=== PATIENT | female | born 1950 | race Hispanic/Latino ===

== ENCOUNTER 2018-06-28 10:25 | Outpatient (CLI) | payer MEDICARE ==
--- NOTE | 2018-06-28 11:39 | RAD ---
THREE VIEWS LEFT SHOULDER: Indication: Fibromyalgia with left shoulder pain. FINDINGS: No acute fracture or subluxation is evident. There is mild left AC joint osteoarthrosis. Visualized l eft lung is clear. IMPRESSION: No acute osseous abnormality. POS: [facility]
== END 2018-06-28 10:26 | disposition home or self-care (01) ==
LOC: BICMAMMO 10:25
PROVIDERS: ATTEND Family Medicine
DX: Z12.31 Encounter for screening mammogram for malignant neoplasm of breast (principal); M79.7 Fibromyalgia
CPT/HCPCS: 77063; 77067

== ENCOUNTER 2018-11-09 09:53 | Outpatient (CLI) | payer MEDICARE ==
--- NOTE | 2018-11-09 11:55 | ULT ---
LIMITED LEFT BREAST ULTRASOUND: Date: 11/09/18 PROVIDED CLINICAL HISTORY: Retroareolar left breast pain. FINDINGS: Limited sonographic interrogation was performed of the left breast in the retroareolar region and reg ion of patient's pain. The sonographic appearance of the interrogated breast parenchyma appears rikki l. IMPRESSION: BIRADS Category 1 - Negative. Negative imaging findings should not preclude further evaluation of a c linically suspicious finding. Patient is referred back to her clinician. POS: [facility]
== END 2018-11-09 09:54 | disposition home or self-care (01) ==
LOC: BICMAMMO 09:53
PROVIDERS: ATTEND Family Medicine
DX: N63.0 Unspecified lump in unspecified breast (principal); N64.4 Mastodynia
CPT/HCPCS: 76642; 77065; G0279

== ENCOUNTER 2018-11-22 10:18 | Outpatient (CLI) | payer MEDICARE ==
--- NOTE | 2018-11-22 10:44 | RAD ---
TWO VIEW CHEST: Indications: Cough, chest pain. Comparison: 09-24-03 FINDINGS: Lungs appear clear. No infiltrate. Heart size upper normal and stable. Vascular and interstitial natalia ings are prominent but stable. Osseous structures show degenerative spine change. IMPRESSION: No acute process or significant interval change noted. POS: [facility]
== END 2018-11-22 10:19 | disposition home or self-care (01) ==
LOC: BICRAD 10:18
PROVIDERS: ATTEND Family Medicine
DX: R07.1 Chest pain on breathing (principal); R50.9 Fever, unspecified; R05 Cough
CPT/HCPCS: 71046

== ENCOUNTER 2019-06-11 12:48 | Outpatient (CLI) | payer MEDICARE ==
--- NOTE | 2019-06-11 13:03 | RAD ---
XR Knee Lt 2 View HISTORY: Knee pain COMPARISON: None. FINDINGS: There are severe arthritic changes of the knee with marked medial compartment narrowing and prominent spur formation the patellofemoral joint space and an ossified body in the suprapatellar portion of the joint space. No joint effusion or fracture. IMPRESSION: Severe osteoarthritic changes of the knee.
--- NOTE | 2019-06-11 13:04 | RAD ---
XR Knee Rt 2 View HISTORY: Right knee pain COMPARISON: None. FINDINGS: There are severe osteoarthritic changes of the knee are there is marked medial compartment narrowing also prominent patellofemoral spur formation. Small joint effusion is seen. Minimal changes of the lateral compartment are present. IMPRESSION: Marked arthritic changes of the right knee.
== END 2019-06-11 12:49 | disposition home or self-care (01) ==
LOC: BICRAD 12:48
PROVIDERS: ATTEND Internal Medicine Rheumatology
DX: M17.0 Bilateral primary osteoarthritis of knee (principal)

== ENCOUNTER 2019-06-13 13:29 | Outpatient (CLI) | payer MEDICARE ==
--- NOTE | 2019-06-13 14:43 | BD ---
DEXA BONE DENSITY EXAM: HISTORY: A 68-year-old postmenopausal female for screening. FINDINGS: LUMBAR SPINE BMD (g/cm2) T-SCORE L1 0.659 -3.0 L2 0.795 -2.1 L3 0.879 -1.9 L4 0.935 -1.1 TOTAL L1-L4 0.826 -2.0 LEFT FEMORAL NECK 0.578 -2.4 TOTAL PROXIMAL LEFT FEMUR 0.876 -0.5 RIGHT FEMORAL NECK 0.563 -2.6 TOTAL PROXIMAL RIGHT FEMUR 0.806 -1.1 IMPRESSION: Osteoporosis. This patient has 10 year WHO fracture risk for a major osteoporotic fracture of 13% an d for a hip fracture of 2.9%. POS: [facility]
== END 2019-06-13 13:30 | disposition home or self-care (01) ==
LOC: BICMAMMO 13:29
PROVIDERS: ATTEND Internal Medicine Rheumatology
DX: M81.0 Age-related osteoporosis without current pathological fracture (principal)
CPT/HCPCS: 77080

== ENCOUNTER 2019-07-22 18:13 | Emergency (ER) | payer MEDICARE ==
[2019-07-22 20:35] LABS: #Lymphocytes 0.5 thou/uL (1.20-3.40); #Monocytes 0.2 thou/uL (0.11-0.59); #Neutrophils 1.8 thou/uL (1.40-6.50); %Basophils 0.6 % (0.0-1.0); %Eosinophils 0.3 % (0.0-10.0); %Lymphocytes 20.9 % (21.0-51.0); %Monocytes 7.1 % (0.0-10.0); Hemoglobin 14.2 g/dL (12.0-16.0); Mean Corpuscular HGB CONC 33.8 g/dL (32.0-36.0); Mean Corpuscular Hemoglobin 29.3 pg (27.0-31.0); Mean Corpuscular Volume 86.5 fL (78.0-98.0); Mean Platelet Volume 8.3 fL (7.4-10.4); Platelet Count 127 thou/uL (130-400); RBC Distribution Width 12.3 % (11.5-14.5); Red Blood Cell (RBC) Count 4.85 mill/uL (4.20-5.40); White Blood Cell (WBC) Count 2.5 thou/uL (4.8-10.8)
[2019-07-22 20:56] LABS: ALT (SGPT) 25 U/L (8-55); AST (SGOT) 32 U/L (5-34); Albumin 3.7 g/dL (3.4-4.8); Alkaline Phosphatase 77 U/L (40-110); Anion Gap 12 mmol/L (10-20); BUN (Urea Nitrogen) 13 mg/dL (9.8-20.1); Bilirubin, Total 0.2 mg/dL (0.2-1.2); Calc. Creatinine Clearance 0 mL/min (70-130); Calcium 8.6 mg/dL (7.8-10.44); Carbon Dioxide 22 mmol/L (23-31); Chloride 109 mmol/L (98-107); Estimated GFR-MDRD Greater than 90; Glucose 90 mg/dL (80-115); Potassium 3.2 mmol/L (3.5-5.1); Protein, Total 6.7 g/dL (6.0-8.3); Sodium 140 mmol/L (136-145)
[2019-07-22] MEDS ORDERED: Acetaminophen 500 MG TAB ONE (21:05)
[2019-07-22] MEDS ORDERED: Ondansetron PF 4 MG/2 ML Vial ONE (21:05)
[2019-07-22] MEDS ORDERED: Potassium Chloride 20 MEQ TAB ONE (21:05)
[2019-07-22 22:02] LABS: Bacteria/HPF None Seen HPF (None Seen); Bilirubin Negative (Negative); Blood, Urine Negative (Negative); Clarity Clear (Clear); Glucose, Urine (Dipstick) Normal (Negative); Leukocyte Negative Leu/uL (Negative); Nitrite Negative (Negative); Protein, Urine (Dipstick) 30 mg/dL (Neg-Trace); RBC/HPF 0-3 HPF (0-3); Squamous Epithelial 0-3 HPF (0-3); Urobilinogen Normal mg/dL (Less than 2)
--- NOTE | 2019-07-22 22:18 | CT ---
CT HEAD WITHOUT IV CONTRAST COMPARISON: 01/13/2015 HISTORY: Weakness and severe headache. Neck stiffness and nausea and vomiting. TECHNIQUE: Axial CT imaging at 5 mm intervals from vertex through skull base without contrast FINDINGS: There is no evidence of an acute infarction, hemorrhage, mass effect, or midline shift. The ventricul ar system is normal in size, shape, and position. Visualized paranasal sinuses are clear. Osseous structures appear intact.There is what appears to be either an osseous exostosis versus a lizeth cification in the midline anterior frontal region stable from the prior exam. IMPRESSION: 1. No acute intracranial abnormality demonstrated.
[2019-07-22] MEDS ORDERED: Ketorolac Tromethamine 30 MG/ML VIAL ONE (22:48)
== END 2019-07-22 23:00 | disposition home or self-care (01) ==
LOC: ERS 18:13
DX: E87.6 Hypokalemia (principal); R51 Headache; M19.90 Unspecified osteoarthritis, unspecified site; Z79.899 Other long term (current) drug therapy
CPT/HCPCS: 36415; 70450; 80053; 81003; 81015; 85025; 93005; 96361; 96374; 96375; J1885; J2405

== ENCOUNTER 2019-11-23 12:04 | Outpatient (CLI) | payer MEDICARE ==
--- NOTE | 2019-11-23 13:35 | MMO ---
Bilateral MAMMO Bilat Screen [facility]. CLINICAL HISTORY: Patient is 69 years old and is seen for screening. The patient has no family history of breast cancer. The patient has no personal history of cancer. VIEWS: The views performed were: bilateral craniocaudal with tomosynthesis and bilateral mediolateral oblique with tomosynthesis. FILMS COMPARED: The present examination has been compared to prior imaging studies performed at [facility] on 01/20/2015, 04/20/2016, 06/28/2018 and 11/09/2018. This study has been interpreted with the assistance of computer-aided detection. MAMMOGRAM FINDINGS: There are scattered fibroglandular densities. Benign calcifications are noted bilaterally. There are no suspicious masses, suspicious calcifications, or new areas of architectural distortion. IMPRESSION: THERE IS NO MAMMOGRAPHIC EVIDENCE OF MALIGNANCY. A ROUTINE FOLLOW-UP MAMMOGRAM IN 1 YEAR IS RECOMMENDED. THE RESULTS OF THIS EXAM WERE SENT TO THE PATIENT. ACR BI-RADS Category 2 - Benign finding MAMMOGRAPHY NOTE: 1. A negative mammogram report should not delay a biopsy if a dominant of clinically suspicious mass is present. 2. Approximately 10% to 15% of breast cancers are not detected by mammography. 3. Adenosis and dense breasts may obscure an underlying neoplasm. Reported by: IRAIDA EUGENE MD Electonically Signed: [id number]
== END 2019-11-23 12:05 | disposition home or self-care (01) ==
LOC: BICMAMMO 12:04
PROVIDERS: ATTEND Family Medicine
DX: Z12.31 Encounter for screening mammogram for malignant neoplasm of breast (principal)
CPT/HCPCS: 77063; 77067

== ENCOUNTER 2020-07-11 11:44 | Outpatient (CLI) | payer MEDICARE ==
--- NOTE | 2020-07-11 12:23 | RAD ---
XR Lumbar Spine 2 Or 3 View History: Low back pain Comparison: None. Findings: Mild dextro scoliosis lumbar spine. Bridging left L2/L3 and L3/L4 osteophytes. High-grade r ight L5/S1 facet joint sclerosis and narrowing. Asymmetric right reverse left SI joint degenerative disease. No acute fracture. Multiple round deep pelvic phleboliths. Moderate degenerative disease of an inferi or erosions of the pubic symphysis. Impression: 1. Mild lumbar dextro scoliosis with associated left-sided bridging osteophytes an associated SI join t degeneration. No acute fracture. 2. 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 3. Mild erosive change inferior left pubic symphysis consistent with chronic pubic symphysitis.
--- NOTE | 2020-07-11 12:25 | RAD ---
XR Sacrum and Coccyx STANDARD History: Low back pain Comparison: None. Findings: No acute displaced fracture or malalignment. Dystrophic calcifications project over the ant erior pelvis likely within a diverticulum. Asymmetric right worse than left SI joint degenerative change. No sacral fracture. Impression: Chronic findings. No acute abnormality.
== END 2020-07-11 11:45 | disposition home or self-care (01) ==
LOC: BICRAD 11:44
PROVIDERS: ATTEND Family Medicine
DX: M54.5 Low back pain (principal); M47.818 Spondylosis without myelopathy or radiculopathy, sacral and sacrococcygeal region; M41.9 Scoliosis, unspecified; M25.78 Osteophyte, vertebrae
CPT/HCPCS: 72100; 72220

== ENCOUNTER 2020-08-04 10:38 | Outpatient (CLI) | payer MEDICARE ==
--- NOTE | 2020-08-04 13:18 | MRI ---
Exam: Left shoulder MRI without IV contrast: HISTORY: Strain of muscle/tendon of left rotator cuff, left shoulder pain FINDINGS: Multiplanar, multisequence MRI examination of the left shoulder is performed. There appears to be a c omplete full-thickness supraspinatus tendon tear with retraction between the humeral dome and the acromium. There is also an extensive tear with partial retraction of the infraspinatus tendon. Abnorm al signal associated with the subscapularis tendon with evidence for at least a partial-thickness undersurface tear and associated thinning. No evidence for normal intact biceps tendon. Moderate to s evere muscle volume loss and fatty change of the supraspinatus, infraspinatus, and subscapularis muscles indicating chronicity. There is abnormal marrow signal involving the acromium with some irregularity certainly worrisome for the possibility of an acromial fracture. There is some surrounding posttraumatic fluid. In addition there is some fluid extension into the overlying posterior lateral deltoid muscle which may well be related to muscle strain. There is in addition a small punctate focus of metal susceptibility artifact in this region of abnormal intramuscular signal. IMPRESSION: Abnormal marrow signal involving the acromium with an appearance most suggestive of that of a fractur e. Follow-up plain x-ray examination of the left shoulder and scapula is recommended. Evidence for intramuscular increased signal in the deltoid muscle evidence for strain. Small punctate focus of susceptibility artifact within this region of strain I'm not sure if that is related to the strain or is just an incidental finding. Extensive rotator cuff tears as above. Severe muscle volume loss of the supraspinatus, infraspinatus, and subscapularis muscles with evidenc e for a torn biceps tendon.
== END 2020-08-04 10:39 | disposition home or self-care (01) ==
LOC: BICMRI 10:38
PROVIDERS: ATTEND Internal Medicine Rheumatology
DX: S46.012A Strain of muscle(s) and tendon(s) of the rotator cuff of left shoulder, initial encounter (principal); R93.7 Abnormal findings on diagnostic imaging of other parts of musculoskeletal system; M62.89 Other specified disorders of muscle; M75.122 Complete rotator cuff tear or rupture of left shoulder, not specified as traumatic

== ENCOUNTER 2020-12-30 14:36 | Outpatient (CLI) | payer BC | END 2020-12-30 14:37 | disposition home or self-care (01) | LOC: BICMAMMO 14:36 | PROVIDERS: ATTEND Internal Medicine Rheumatology | DX: Z12.31 Encounter for screening mammogram for malignant neoplasm of breast (principal); M81.0 Age-related osteoporosis without current pathological fracture | CPT/HCPCS: 77063; 77067; 77080 ==

== ENCOUNTER 2022-12-07 07:36 | Outpatient (CLI) | payer MEDICARE | END 2022-12-07 07:37 | disposition home or self-care (01) | LOC: BICRAD 07:36 | PROVIDERS: ATTEND Family Medicine | DX: R07.81 Pleurodynia (principal); S22.31XA Fracture of one rib, right side, initial encounter for closed fracture; I51.7 Cardiomegaly | CPT/HCPCS: 71046; 71110 ==

== ENCOUNTER 2023-01-12 08:52 | Outpatient (CLI) | payer MEDICARE | END 2023-01-12 08:53 | disposition home or self-care (01) | LOC: BICMAMMO 08:52 | PROVIDERS: ATTEND Internal Medicine Rheumatology | DX: M81.0 Age-related osteoporosis without current pathological fracture (principal); M85.852 Other specified disorders of bone density and structure, left thigh; M85.851 Other specified disorders of bone density and structure, right thigh | CPT/HCPCS: 77080 ==

== ENCOUNTER 2023-08-16 08:02 | Outpatient (CLI) | payer BC, MEDICARE | END 2023-08-16 08:03 | disposition home or self-care (01) | LOC: BICMAMMO 08:02 | PROVIDERS: ATTEND Family Medicine | DX: Z12.31 Encounter for screening mammogram for malignant neoplasm of breast (principal) | CPT/HCPCS: 77063; 77067 ==

== ENCOUNTER 2023-09-02 08:02 | Outpatient (CLI) | payer MEDICARE | END 2023-09-02 08:03 | disposition home or self-care (01) | LOC: BICRAD 08:02 | PROVIDERS: ATTEND Internal Medicine Rheumatology | DX: M17.11 Unilateral primary osteoarthritis, right knee (principal) ==

== ENCOUNTER 2024-02-09 15:48 | Outpatient (CLI) | payer BC, MEDICARE | END 2024-02-09 15:49 | disposition home or self-care (01) | LOC: BICRAD 15:48 | PROVIDERS: ATTEND Family Medicine | DX: J18.9 Pneumonia, unspecified organism (principal); J45.909 Unspecified asthma, uncomplicated | CPT/HCPCS: 71046 ==

== ENCOUNTER 2024-11-05 14:09 | Outpatient (CLI) | payer MEDICARE | END 2024-11-05 14:10 | disposition home or self-care (01) | LOC: BICMAMMO 14:09 | PROVIDERS: ATTEND Family Medicine | DX: Z12.31 Encounter for screening mammogram for malignant neoplasm of breast (principal); M85.80 Other specified disorders of bone density and structure, unspecified site; M81.0 Age-related osteoporosis without current pathological fracture | CPT/HCPCS: 77063; 77067; 77080 ==